=== PATIENT | male | born 2000 | race Caucasian/White ===

== ENCOUNTER 2023-06-25 05:06 | Emergency (ER) | payer SELFPAY ==
[~2023-06-25] VITALS: Ht 172.7 cm; Wt 75.0 kg
[2023-06-25 05:13] VITALS: TEMP 98
[2023-06-25 05:40] VITALS: BP 155/85; PULSE 95
== END 2023-06-25 05:43 | disposition home or self-care (01) ==
LOC: COL.ER 05:06
DX: F10.129 Alcohol abuse with intoxication, unspecified (principal)